=== PATIENT | female | born 1970 | race Caucasian/White ===

== ENCOUNTER → 2016-05-08 | Outpatient (CLI) | payer OTHER ==
[~2016-05-08] VITALS: Ht 162.6 cm; Wt 138.8 kg
[~2016-05-08] MED LIST: AUGMENTIN875 MG PO; BUSPAR5 MG PO; CLONAZEPAM0.5 MG PO; COLACE100 MG PO; COMBIVENT RESPIM4 GM IH; ENDOCET 7.5-321 EACH PO; FLAGYL500 MG PO; FLUOXETINE HCL20 M1 PO; KLONOPIN1 MG PO; MIRENA52 MG IY; MOTRIN800 MG PO; NICOTINE PATCH1 EAC2 TD; NIZORAL 2% CREA15 GM TP; OMEPRAZOLE40 M1 PO; PERCOCET 10/1 TABLET PO; PREDNISONE10 MG PO; PREDNISONE20 MG PO; PRILOSEC20 MG PO; PROVENTIL,2.5 MG/3 M IH; PROZAC20 MG PO; SERTRALINE HCL100 MG PO; VENTOLIN HFA18 GM IH; ZOLOFT100 MG PO; ZOLOFT50 M1 PO; lasix
== END | disposition home or self-care (01) ==
LOC: AMB 01-24 11:30
PROC: 0DB48ZX Excision of Esophagogastric Junction, Via Natural or Artificial Opening Endoscopic, Diagnostic (ICD-10-PCS; principal; 2016-05-08)
DX: K29.80 Duodenitis without bleeding (principal); K22.10 Ulcer of esophagus without bleeding; R10.13 Epigastric pain; K21.9 Gastro-esophageal reflux disease without esophagitis; R11.2 Nausea with vomiting, unspecified; R63.5 Abnormal weight gain; R14.0 Abdominal distension (gaseous); J45.909 Unspecified asthma, uncomplicated; G47.30 Sleep apnea, unspecified; E66.01 Morbid (severe) obesity due to excess calories; Z68.43 Body mass index [BMI] 50.0-59.9, adult; F17.200 Nicotine dependence, unspecified, uncomplicated; Z88.8 Allergy status to other drugs, medicaments and biological substances
CPT/HCPCS: 88305; B4087; J0330; J2405; J3010

== ENCOUNTER → 2017-01-15 | Outpatient (CLI) | payer OTHER | END | disposition home or self-care (01) | LOC: CDC 12:26 | DX: Z01.810 Encounter for preprocedural cardiovascular examination (principal); M79.642 Pain in left hand; M25.532 Pain in left wrist; G56.02 Carpal tunnel syndrome, left upper limb | CPT/HCPCS: 93000 ==

== ENCOUNTER 2017-01-23 09:07 | Emergency (ER) | payer OTHER ==
[~2017-01-23] VITALS: Ht 160 cm; Wt 139.0 kg
[2017-01-23 09:10] VITALS: BP 125/84
== END 2017-01-23 10:44 | disposition left against medical advice (07) ==
LOC: EME 09:07
DX: M54.9 Dorsalgia, unspecified (principal); Z53.21 Procedure and treatment not carried out due to patient leaving prior to being seen by health care provider

== ENCOUNTER 2017-02-27 08:18 | Day surgery (SDC) | payer OTHER ==
[~2017-02-27] VITALS: Ht 162.6 cm; Wt 145.4 kg
[~2017-02-27 08:18] MED LIST changes: +LIPITOR20 MG PO; +LYRICA75 MG PO; +METFORMIN HCL500 M1 PO; +REMERON15 M2 PO; -SERTRALINE HCL100 MG PO; +VITAMIN D-3 401 EACH PO
[2017-02-27] MEDS ORDERED: MAALOX ADVANCE355 ML PO (08:59)
[2017-02-27 09:56] LABS: POINT-OF-CARE METER ID UU14174212
[2017-02-27 13:59] LABS: POINT-OF-CARE METER ID UU13113675
[2017-02-27 16:55] VITALS: BP 102/55
[2017-02-27 17:21] LABS: POINT-OF-CARE METER ID UU14188577
[2017-02-27 20:36] VITALS: BP 124/68
[2017-02-27 21:40] LABS: POINT-OF-CARE METER ID UU14188577
[2017-02-27 23:46] VITALS: BP 111/51
[2017-02-28 04:49] VITALS: BP 108/59
[2017-02-28 06:31] LABS: POINT-OF-CARE METER ID UU14117124
[2017-02-28 07:45] VITALS: BP 116/72
[2017-02-28] MEDS ORDERED: ENDOCET 5-3251 EACH PO (08:28)
[2017-02-28] MEDS ORDERED: FLEXERIL10 MG PO (08:28)
== END 2017-02-28 09:41 | disposition home or self-care (01) ==
LOC: SDC 08:18 → ENRESERV 14:50 → SDC 15:00 → ENRESERV 15:01 → 3EAST 15:30 → 2SOUTH 15:30 → 3EAST 16:23
PROVIDERS: Neurological Surgery
DX: M47.12 Other spondylosis with myelopathy, cervical region (principal); M50.01 Cervical disc disorder with myelopathy, high cervical region; M48.02 Spinal stenosis, cervical region; E66.9 Obesity, unspecified; Z68.43 Body mass index [BMI] 50.0-59.9, adult; I10 Essential (primary) hypertension; E11.9 Type 2 diabetes mellitus without complications; J45.909 Unspecified asthma, uncomplicated; K21.9 Gastro-esophageal reflux disease without esophagitis; F41.9 Anxiety disorder, unspecified; Z79.84 Long term (current) use of oral hypoglycemic drugs; F17.200 Nicotine dependence, unspecified, uncomplicated
CPT/HCPCS: 72040; 76000; 82948; 94640; 94640 76; 94660; C1713; G0378; J0131; J0330; J0690; J1100; J1170; J2250; J2405; J2704; J2710; J2765; J3010; J3480

== ENCOUNTER → 2017-05-22 | Outpatient (CLI) | payer OTHER ==
[~2017-05-22] MED LIST changes: +ENDOCET 5-3251 EACH PO; +FLEXERIL10 MG PO; +MAALOX ADVANCE355 ML PO
== END | disposition home or self-care (01) ==
LOC: CDC 10:00
DX: Z01.810 Encounter for preprocedural cardiovascular examination (principal); G56.02 Carpal tunnel syndrome, left upper limb; M79.642 Pain in left hand; M25.532 Pain in left wrist
CPT/HCPCS: 93000

== ENCOUNTER 2017-09-24 05:52 | Emergency (ER) | payer OTHER ==
[~2017-09-24] VITALS: Ht 160 cm; Wt 139.7 kg
[2017-09-24 07:07] LABS: HEMATOCRIT 40.8 % (36.0-46.0); HEMOGLOBIN 13.6 G/DL (11.9-15.5); MCH 31.3 PG (29.0-34.0); MCHC 33.3 G/DL (30.0-36.0); MCV 93.8 FL (83-99); PLATELET COUNT 178 K/uL (156-360); RED BLOOD COUNT 4.35 M/uL (3.80-5.20); WHITE BLOOD COUNT 11.1 K/uL (4.1-10.2)
[2017-09-24 07:41] LABS: CHLORIDE 99 MEQ/L (99-109); CREATININE 0.5 MG/DL (0.6-1.3); GFR ESTIMATE (CALCULATED) > 59 mL/min/; GLUCOSE 222 mg/dL (70-99); POTASSIUM 3.6 MEQ/L (3.7-5.4); SODIUM 135 MEQ/L (136-147); UREA NITROGEN (BUN) 11 mg/dL (9-23)
[2017-09-24] MEDS ORDERED: PREDNISONE20 MG PO ×2 (08:55→09:05)
[2017-09-24 09:37] VITALS: BP 129/87
== END 2017-09-24 09:38 | disposition home or self-care (01) ==
LOC: EME → EDBD 05:52 → EME 09:38
DX: J20.9 Acute bronchitis, unspecified (principal); Z72.0 Tobacco use; J45.909 Unspecified asthma, uncomplicated; E11.9 Type 2 diabetes mellitus without complications; Z79.84 Long term (current) use of oral hypoglycemic drugs; F41.9 Anxiety disorder, unspecified; Z88.5 Allergy status to narcotic agent; Z88.6 Allergy status to analgesic agent; Z88.8 Allergy status to other drugs, medicaments and biological substances
CPT/HCPCS: 71046; 80048; 85027; 93005; 94640; 94640 76; 99281; 99283; J7512